=== PATIENT | male | born 1975 | race Hispanic/Latino ===

== ENCOUNTER 2019-08-30 09:06 | Emergency (ER) | payer SELFPAY ==
[2019-08-30] MEDS ORDERED: KETOROLAC TROMETHAMINE INJ 30 MG/ML VIAL IV ONE (09:19)
[2019-08-30] MEDS ORDERED: FAMOTIDINE IV PREMIX 20 MG in PREMIX BAG 1 BAG IVPB ONE (09:19)
[2019-08-30 09:21] VITALS: TEMP 98
--- NOTE | 2019-08-30 09:22 | ED.PDOC ---
History of Present Illness - General Chief Complaint: Abdominal Pain Stated Complaint: Abdominal discomfort Time Seen by Provider: 08/30/19 09:18 Information Source: patient, RN notes reviewed, Vital Signs reviewed, family Exam Limitations: no limitations - History of Present Illness Abdominal Pain Onset Location: periumbilical Pain Radiation: no radiation Quality: severe, intermittent, sharpness Timing/Duration: 24 hours Improving Factors: nothing Worsening Factors: nothing Associated Symptoms: denies symptoms Review of Systems - Review of Systems Constitutional: States: no symptoms reported EENTM: States: no symptoms reported Respiratory: States: no symptoms reported Cardiology: States: no symptoms reported Gastrointestinal/Abdominal: States: see HPI, abdominal pain. Denies: diarrhea, vomiting Genitourinary: States: no symptoms reported Musculoskeletal: States: no symptoms reported Skin: States: no symptoms reported Neurological: States: no symptoms reported Endocrine: States: no symptoms reported Hematologic/Lymphatic: States: no symptoms reported Family Medical History - Family History Father Family History: No Known Living Status: Still Living Physical Exam - Physical Exam General Appearance: Alert, Comfortable Eyes, Ears, Nose, Throat Exam: PERRL/EOMI Neck: full range of motion Respiratory: chest non-tender, lungs clear Cardiovascular/Chest: normal peripheral pulses Gastrointestinal/Abdominal: normal bowel sounds, non tender, soft, tenderness - To periumbilical Male Genitalia: no hernia Extremity: normal range of motion, non-tender 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 with rectal inflammation and fatty liver. Advised to take Cipro/Flagyl for 1 week and f/u with PCP. - Results/Orders Results/Orders: EXAM DESCRIPTION: Abdomen/Pelvis w/Contrast CLINICAL HISTORY: Periumbilical pain, elevated WBC, appendicits? COMPARISON: None. TECHNIQUE: Postcontrast CT images of the abdomen and pelvis are obtained using standard imaging protocol. This exam was performed according to our departmental dose-optimization program, which includes automated exposure control, adjustment of the mA and/or kV according to patient size and/or use of iterative reconstruction technique . FINDINGS: Visualized lung bases show no acute findings. Graft heterogeneous decreased attenuation of the liver compared to the spleen. Less than 1 cm hypodensity in the dome of the left lobe liver is too small to adequately characterize, but statistically most likely represents cyst or hemangioma. The spleen, pancreas, adrenal glands, gallbladder, abdominal vasculature, kidneys, ureters, and contracted urinary bladder are unremarkable. Mild circumferential bladder wall thickening is likely related to poor distention of the urinary bladder. Prostate is unremarkable. Surgical clips near the cecum are seen suggesting previous appendectomy. Stomach and small bowel are unremarkable. Focal area of circumferential wall thickening in the proximal sigmoid colon located in the central lower abdomen to pelvis ovary length of 5 to 6 cm is seen with surrounding fat stranding. No drainable fluid collection or free intraperitoneal air. Mild scattered diverticuli of the descending to sigmoid co marlon including this area are seen. Osseous structures show no aggressive bony lesions. Degenerative changes of the line are most significant towards the right at L4-5. No pathologically enlarged abdominal or retroperitoneal lymphadenopathy. IMPRESSION: Localized circumferential bowel wall thickening and surrounding inflammation in the descending to sigmoid colon region likely represents uncomplicated diverticulitis versus localized colitis. Continued follow-up until resolution to exclude neoplastic process. Hepatomegaly with diffuse fatty infiltration of the liver is seen. Circumferential urinary bladder wall thickening is probably secondary to poor distention of the urinary bladder versus some degree of chronic bladder outlet obstruction or possibly related to adjacent sigmoid colon inflammation. Electronically signed by: Bronson López MD 08/30/2019 11:02 AM CDT Departure - Departure Clinical Impression: Colitis Time of Disposition: 11:19 Disposition: Discharge to Home or Self Care Departure Forms: ED Discharge - Pt. Copy, Patient Portal Self Enrollment Instructions: DI for Abdominal Pain-Adult Diet: resume usual diet Prescriptions: Ciprofloxacin [Cipro] 500 mg PO BID #14 tab metroNIDAZOLE [Flagyl] 500 mg PO Q8H 7 Days #21 tab Home Medications: Ambulatory Orders Ciprofloxacin [Cipro] 500 mg PO BID #14 tab 08/30/19 metroNIDAZOLE [Flagyl] 500 mg PO Q8H 7 Days #21 tab 08/30/19 Comments: F/u with PCP in 1-2 weeks for colitis and fatty liver.
[2019-08-30] MEDS ORDERED: FAMOTIDINE IV PREMIX 50 ML IVPB ONE (09:26)
[2019-08-30] MEDS ORDERED: SODIUM CHLORIDE 0.9% 1000ML 500 ML IVS ONE (09:54)
[2019-08-30 10:55] VITALS: BP 140/93; O2SAT 96
--- NOTE | 2019-08-30 11:04 | CT ---
EXAM DESCRIPTION: Abdomen/Pelvis w/Contrast CLINICAL HISTORY: Periumbilical pain, elevated WBC, appendicits? COMPARISON: None. TECHNIQUE: Postcontrast CT images of the abdomen and pelvis are obtained using standard imaging protocol. This exam was performed according to our departmental dose-optimization program, which includes automated exposure control, adjustment of the mA and/or kV according to patient size and/or use of iterative reconstruction technique . FINDINGS: Visualized lung bases show no acute findings. Graft heterogeneous decreased attenuation of the liver compared to the spleen. Less than 1 cm hypodensity in the dome of the left lobe liver is too small to adequately characterize, but statistically most likely represents cyst or hemangioma. The spleen, pancreas, adrenal glands, gallbladder, abdominal vasculature, kidneys, ureters, and contracted urinary bladder are unremarkable. Mild circumferential bladder wall thickening is likely related to poor distention of the urinary bladder. Prostate is unremarkable. Surgical clips near the cecum are seen suggesting previous appendectomy. Stomach and small bowel are unremarkable. Focal area of circumferential wall thickening in the proximal sigmoid colon located in the central lower abdomen to pelvis ovary length of 5 to 6 cm is seen with surrounding fat stranding. No drainable fluid collection or free intraperitoneal air. Mild scattered diverticuli of the descending to sigmoid colon including this area are seen. Osseous structures show no aggressive bony lesions. Degenerative changes of the line are most significant towards the right at L4-5. No pathologically enlarged abdominal or retroperitoneal lymphadenopathy. IMPRESSION: Localized circumferential bowel wall thickening and surrounding inflammation in the descending to sigmoid colon region likely represents uncomplicated diverticulitis versus localized colitis. Continued follow-up until resolution to exclude neoplastic process. Hepatomegaly with diffuse fatty infiltration of the liver is seen. Circumferential urinary bladder wall thickening is probably secondary to poor distention of the urinary bladder versus some degree of chronic bladder outlet obstruction or possibly related to adjacent sigmoid colon inflammation. Electronically signed by: Bronson López MD 08/30/2019 11:02 AM CDT
== END 2019-08-30 11:58 | disposition home or self-care (01) ==
LOC: ER 09:06
DX: K52.9 Noninfective gastroenteritis and colitis, unspecified (principal); K76.0 Fatty (change of) liver, not elsewhere classified
CPT/HCPCS: 74177; 80053; 81001; 85025; J1885; J3490; J7030